=== PATIENT | female | born 1955 | race Caucasian/White ===

== ENCOUNTER 2017-08-08 13:02 | Inpatient (IN) | payer OTHER ==
[~2017-08-08] VITALS: Ht 154.9 cm; Wt 67.3 kg
[2017-08-08] VITALS (9 sets, daily range): BP systolic 78–141; BP diastolic 46–66; PULSE 68–96; RESP 18–19; Ht 154.9 cm; Wt 67.3 kg
[2017-08-08] MEDS ORDERED: NACL 0.9% 3 ML SYG IV SCH (16:00)
[2017-08-08] MEDS ORDERED: HYDROCODONE/APAP (5/325) TAB PO PRN (16:00)
--- NOTE | 2017-08-08 16:03 | HP ---
Date/Time of Note Date/Time of Note DATE: 08/08/17 TIME: 15:55 Assessment/Plan VTE Prophylaxis VTE Prophylaxis Intervention: LMWH Lines/Catheters IV Catheter Type (from [facility]): Saline Lock Assessment/Plan Chief Complaint/Hosp Course 61 yo female with sepsis 2/2 pyelonephritis - Continue ceftriaxone for now, seems to be working well - IVF for hypotension, though she says her baseline BP is 100/50, always low she has been told. Lactate is normal and mentating well, making urine so I do not believe she is in shock - F/u urine cultures - Can likely be discharged tomorrow Problems: HPI/ROS Admit Date/Time Admit Date/Time Aug 08, 2017 at 14:27 Hx of Present Illness 61 yo female without PMH who was transferred from [place] ED for treatment of pyelonephritis Patient in [facility] until about a week ago when developed dysuria and urinary frequency. Her symptoms were mild and tolerable, did not seek medical care. Then last night and through this AM symptoms progressed to fever, chills and lethargy with CVA pain as well as nausea/vomiting. Went to ED where found to have pyelonephritis. Lactate 2.5 then 1.1 with fluids. Slightly tachy, mild fever, baseline BP (runs low). Renal US showing pyelo changes but nothing else. Received ceftriaxone and transferred here Seen now, says she feels much better. Tolerating PO. PMH/Family/Social Past Medical History Medical History: no pertinent history Past Surgical History Past Surgical Hx: no surgical history Family History Significant Family History: no pertinent family hx Social History Alcohol Use: none Smoking Status: Current some day smoker Drug Use: none Exam/Review of Systems Vital Signs Vitals Vital Signs Date Time Temp Pulse Resp B/P Pulse Ox O2 Delivery O2 Flow Rate FiO2 08/08/17 15:30 70 89/50 08/08/17 15:15 98.5 18 98 Room Air Exam Constitutional: alert, oriented, well developed Psych: nl mood/affect, no complaints Head: atraumatic, normocephalic Eyes: EOMI, PERRL, nl conjunctiva, nl lids, nl sclera ENMT: nl external ears & nose, nl lips & teeth, nl nasal mucosa & septum Neck: non-tender, supple Respiratory: clear to auscultation, normal air movement Cardiovascular: nl pulses, regular rate and rhythm Gastrointestinal: nl liver, spleen, non-tender, soft Musculoskeletal: nl extremities to inspection Extremities: normal pulses Neurological: POLICEMAN II-XII intact, nl mental status, nl speech, nl strength Skin: nl turgor, No rash or lesions Lymph: nl lymph nodes ISAAC JOHNSON MD Aug 08, 2017 16:03
[2017-08-08] MEDS ORDERED: SOD CHLORIDE 0.9% 1,000 ML IV ONE (16:30)
[2017-08-08 17:30] LABS: BASOPHILS % 0.2 % (0.0-2.0); HEMATOCRIT 34.1 % (37.0-47.0); HEMOGLOBIN 11.2 g/dl (12.0-16.0); LYMPHOCYTES # 1.2 10^3/ul (0.8-2.9); LYMPHOCYTES % 8.5 % (15.0-51.0); MEAN CORPUSCULAR HEMOGLOBIN 28.8 pg (29.0-33.0); MEAN CORPUSCULAR HGB CONC 32.8 g/dl (32.0-37.0); MEAN CORPUSCULAR VOLUME 87.7 fl (82.0-101.0); MEAN PLATELET VOLUME 10.8 fl (7.4-10.4); MONOCYTE # 1.1 10^3/ul (0.3-0.9); MONOCYTES % 7.9 % (0.0-11.0); NEUTROPHIL # 11.7 10^3/ul (1.6-7.5); NEUTROPHILS % 82.9 % (39.0-77.0); PLATELET COUNT 209 10^3/UL (140-415); RED BLOOD COUNT 3.89 10^6/ul (4.20-5.40); RED CELL DISTRIBUTION WIDTH 13.3 % (11.5-14.5); WHITE BLOOD COUNT 14.1 10^3/ul (4.8-10.8)
[2017-08-08 17:58] LABS: CALCIUM 8.1 mg/dl (8.4-10.2); CREATININE 0.75 mg/dl (0.44-1.00); POTASSIUM 3.5 mmol/L (3.5-5.1)
[2017-08-08] MEDS ORDERED: PIPER-TAZO 3.375 GM IV (PMX) 50 ML ONE (19:27)
[2017-08-08] MEDS ORDERED: VANCOMYCIN 1 GM (PMX) 250 ML ONE (19:27)
[2017-08-08] MEDS ORDERED: ACETAMINOPHEN 325 MG TAB ONE (19:30)
--- NOTE | 2017-08-08 19:44 | EN ---
Date/Time of Note Date/Time of Note DATE: 08/08/17 TIME: 19:42 Event Note Medicine Medicine Event Note BRUISE TRIMMER called for rigors/fever Patient clearly rigoring, septic with 102 fever, tachy, tachypneic. 100% on 2L , BP 140/66, HR 100s Mentating normally Lungs clear A/P: 61 yo female with urosepsis: - Broaden to zosyn/vancomycin - BC and lactic acid drawn, will follow up ISAAC JOHNSON MD Aug 08, 2017 19:44
[2017-08-08] MEDS: ACETAMINOPHEN 325 MG TAB PO PRN (19:46)
[2017-08-08] MEDS ORDERED: PIPER-TAZO 3.375 GM IV (PMX) 50 ML IV ONE (20:00)
[2017-08-08] MEDS ORDERED: VANCOMYCIN 1 GM (PMX) 250 ML IVPB SCH (20:00)
[2017-08-08] MEDS: ONDANSETRON 4 MG INJ IV PRN (20:01)
[2017-08-08] MEDS ORDERED: SOD CHLORIDE 0.9% 500 ML IV ONE ×2 (20:30→23:00)
[2017-08-08 20:34] LABS: ADD UMIC YES; UR ASCORBIC ACID NEGATIVE (NEGATIVE); UR BACTERIA FEW /HPF (NONE SEEN); UR BILIRUBIN (Dip) NEGATIVE (NEGATIVE); UR BLOOD (Dip) 2+ mg/dL (NEGATIVE); UR CLARITY CLOUDY (CLEAR); UR COLOR YELLOW (YELLOW); UR GLUCOSE (Dip) NEGATIVE (NEGATIVE); UR KETONES (Dip) NEGATIVE (NEGATIVE); UR LEUKOCYTE ESTERASE (Dip) 3+ Leu/ul (NEGATIVE); UR MUCUS FEW /HPF (NONE SEEN); UR NITRITE (Dip) NEGATIVE (NEGATIVE); UR RBC 9 /HPF (0-5); UR SPECIFIC GRAVITY (Dip) 1.011 (1.003-1.030); UR TOTAL PROTEIN (Dip) 1+ mg/dl (NEGATIVE); UR UROBILINOGEN (Dip) NEGATIVE (NEGATIVE)
--- NOTE | 2017-08-08 20:50 | RADRPT ---
PROCEDURE: Chest x-ray CLINICAL INDICATION: Fever TECHNIQUE: Chest single view COMPARISON: None FINDINGS: The heart is normal in size. The pulmonary vessels are normal in caliber. The lungs are clear. Th e costophrenic angles are sharp. The visualized bony thorax is unremarkable. IMPRESSION: No acute cardiopulmonary disease. RPTAT: HH .Eloy Thomas MD, Date Time Electronically viewed and signed by .Eloy Thomas MD, MD on 08/08/2017 20:49 .W/
[2017-08-08] MEDS: SOD CHLORIDE 0.9% 1,000 ML IV SCH (23:57)
[2017-08-09] VITALS (12 sets, daily range): BP systolic 88–104; BP diastolic 45–55; PULSE 44–71; RESP 15–20
[2017-08-09] MEDS ORDERED: CEFTRIAXONE 1 GM/50 ML (PMX) 50 ML IVPB ONE (00:30)
[2017-08-09] MEDS ORDERED: SALINE 0.65% 45 ML NAS SPRAY NASAL PRN (05:30)
[2017-08-09] MEDS: PIPER-TAZO 3.375 GM IV (PMX) 50 ML IVPB SCH ×3 (05:32→16:52)
[2017-08-09] MEDS ORDERED: METHYLPREDNISOLONE 125 MG INJ IV ONE (07:00)
[2017-08-09] MEDS ORDERED: FAMOTIDINE 20 MG INJ IV ONE (07:00)
[2017-08-09 07:26] LABS: BASOPHIL # 0.1 10^3/ul (0.0-0.1); BASOPHILS % 0.3 % (0.0-2.0); EOSINOPHILS % 0.2 % (0.0-7.0); HEMATOCRIT 32.1 % (37.0-47.0); HEMOGLOBIN 10.2 g/dl (12.0-16.0); LYMPHOCYTES # 1.7 10^3/ul (0.8-2.9); LYMPHOCYTES % 9.9 % (15.0-51.0); MEAN CORPUSCULAR HEMOGLOBIN 28.7 pg (29.0-33.0); MEAN CORPUSCULAR HGB CONC 31.8 g/dl (32.0-37.0); MEAN CORPUSCULAR VOLUME 90.2 fl (82.0-101.0); MEAN PLATELET VOLUME 11.1 fl (7.4-10.4); MONOCYTE # 0.7 10^3/ul (0.3-0.9); MONOCYTES % 4.4 % (0.0-11.0); NEUTROPHIL # 14.1 10^3/ul (1.6-7.5); NEUTROPHILS % 84.8 % (39.0-77.0); PLATELET COUNT 186 10^3/UL (140-415); POSITIVE DIFF @See below; RED BLOOD COUNT 3.56 10^6/ul (4.20-5.40); RED CELL DISTRIBUTION WIDTH 13.4 % (11.5-14.5); WHITE BLOOD COUNT 16.7 10^3/ul (4.8-10.8)
[2017-08-09 07:53] LABS: ALBUMIN 2.7 g/dl (3.3-4.9); ALBUMIN/GLOBULIN RATIO 0.96; BILIRUBIN,INDIRECT 0.1 mg/dl (0-1.1); BILIRUBIN,TOTAL 0.1 mg/dl (0.2-1.3); CALCIUM 7.8 mg/dl (8.4-10.2); CREATININE 0.72 mg/dl (0.44-1.00); POTASSIUM 3.7 mmol/L (3.5-5.1); TOTAL PROTEIN 5.5 g/dl (6.1-8.1)
[2017-08-09] MEDS ORDERED: CEFTRIAXONE 2 GM/50 ML (PMX) 50 ML IVPB SCH (09:00)
[2017-08-09 09:02] LABS: BASOPHILS % (M) 2 % (0-2); ERYTHROBLAST% (NRBC) (M) 1 % (0-0); MONOCYTES % (M) 2 % (0-11); PLATELET ESTIMATE NORMAL
[2017-08-09] MEDS: SOD CHLORIDE 0.9% 1,000 ML IV SCH (09:28)
[2017-08-09] MEDS ORDERED: KETOROLAC 15 MG INJ IV STA (09:47)
[2017-08-09] MEDS ORDERED: KETOROLAC 30 MG INJ IV ONE (10:00)
--- NOTE | 2017-08-09 10:58 | RADRPT ---
PROCEDURE: CT ABDOMEN AND PELVIS WITHOUT CONTRAST. CLINICAL INDICATION: Urosepsis. Rule out abscess TECHNIQUE: CT scan of the abdomen and pelvis without contrast was performed on a multidetector hig h-resolution CT scanner. The patient was scanned without intravenous contrast. Coronal and sagittal reformatted images were obtained from the axial source images. Images were reviewed on a high-resol Lomography PACS workstation. The total exam CTDI equals 9.8 mGy and the total exam DLP equals 584.2 mGy-c m. One or more of the following dose reduction techniques were used: Automated exposure control. Adjustment of the mA and/or kV according to patient size. Use of iterative reconstruction technique. DICOM images are available COMPARISON: None FINDINGS: CT abdomen: Bilateral lower lobe atelectasis is identified. Heart size is within normal limits. There is no sign ificant pericardial effusion. Hepatic morphology is within normal limits. No gross contour deforming masses. Gallbladder is unrema rkable. No evidence of intrahepatic or extrahepatic biliary dilatation. The spleen and pancreas are within normal limits. Both adrenal glands are within normal limits. Both kidneys are and normal anatomic position. There is nonspecific bilateral perinephric fat strand ing. No gross renal/ureteric calculi. No evidence of hydronephrosis. The visualized GI tract demonstrates normal caliber loops of small and large bowel. No evidence of b owel obstruction. The appendix is within normal limits. Atherosclerotic calcification of the aorta is identified. Several shoddy retroperitoneal lymph nodes are noted. CT pelvis: The bladder is distended. The rectosigmoid colon is unremarkable. The uterus is not visualized. Smal l amount of free fluid within the pelvis. The visualized osseous structures, appears to be within normal limits. IMPRESSION: 1. No evidence of bowel obstruction. The appendix is within normal limits. 2. Nonspecific bilateral perinephric fat stranding. No gross renal/ureteric calculi or hydronephrosi s. Cannot exclude underlying infection. 3. No gross focal fluid collections. 4. The bladder appear to be within normal limits. Small amount nonspecific free fluid within the pel vis. 5. Atherosclerosis of the aorta. 6. Bilateral lower lobe atelectasis and small pleural effusions. RPTAT: AAPP Ronda Keller, Physician Date Time Electronically viewed and signed by Ronda Keller Physician on 08/09/2017 10:58 JL/
[2017-08-09] MEDS: KETOROLAC 30 MG INJ IV PRN (18:46)
[2017-08-09] MEDS ORDERED: INFLUENZA VIRUS VACCINE 0.5 ML SYG IM* ONE (21:00)
[2017-08-09] MEDS: DOCUSATE SODIUM 100 MG CAP PO SCH (21:20)
[2017-08-09] MEDS: POLYETHYLENE GLYCOL 17 GM PACKET PO SCH (21:20)
[2017-08-10] VITALS (13 sets, daily range): BP systolic 93–136; BP diastolic 48–65; PULSE 36–53; RESP 15–19
[2017-08-10] MEDS: PIPER-TAZO 3.375 GM IV (PMX) 50 ML IVPB SCH ×3 (01:57→17:13)
[2017-08-10] MEDS: ONDANSETRON 4 MG INJ IV PRN ×3 (07:58→21:44)
[2017-08-10] MEDS ORDERED: INFLUENZA VIRUS VACCINE 0.5 ML (DISPENSING) IM* ONE (09:00)
--- NOTE | 2017-08-10 09:26 | PN ---
Date/Time of Note Date/Time of Note DATE: 08/09/17 TIME: 09:24 Assessment/Plan VTE Prophylaxis VTE Prophylaxis Intervention: LMWH Lines/Catheters IV Catheter Type (from Nrs): Peripheral IV Urinary Cath still in place: No Assessment/Plan Chief Complaint/Hosp Course 61 yo female with sepsis 2/2 pyelonephritis Pyelonephritis with sepsis: - Abx broadened to zosyn - Culture data from outside hospital pending - IVF for hypotension, though she says her baseline BP is 100/50, always low she has been told. Lactate is normal and mentating well, making urine so I do not believe she is in shock - F/u cultures Problems: Subjective 24 Hr Interval Summary Free Text/Dictation Patient rigoring, febrile. Abx broadened to zosyn/vanco HD stable CT without surgical findings Exam/Review of Systems Vital Signs Vitals Vital Signs Date Time Temp Pulse Resp B/P Pulse Ox O2 Delivery O2 Flow Rate FiO2 08/10/17 08:11 53 08/10/17 07:30 98.1 19 127/58 98 08/10/17 06:02 3.0 08/10/17 04:00 Nasal Cannula Intake and Output 08/09/17 08/09/17 08/10/17 14:59 22:59 06:59 Intake Total 1050 ml 600 ml Balance 1050 ml 600 ml Exam Constitutional: alert, oriented, well developed Psych: nl mood/affect, no complaints Head: atraumatic, normocephalic Eyes: EOMI, PERRL, nl conjunctiva, nl lids, nl sclera ENMT: nl external ears & nose, nl lips & teeth, nl nasal mucosa & septum Neck: non-tender, supple Respiratory: clear to auscultation, normal air movement Cardiovascular: nl pulses, regular rate and rhythm Gastrointestinal: nl liver, spleen, non-tender, soft Musculoskeletal: nl extremities to inspection, nl gait and stance Extremities: normal pulses Neurological: HAND STAPLER II-XII intact, nl mental status, nl speech, nl strength Skin: nl turgor, No rash or lesions Lymph: nl lymph nodes Results Result Diagram: 08/09/17 0657 08/09/17 0657 Medications Medications Current Medications Acetaminophen/ Hydrocodone Bitart 1 tab 1 tab Q6H PRN PO MODERATE PAIN LEVEL 4- 6 Last administered on 08/08/17t 18:52; Admin Dose 1 TAB; Start 08/08/17 at 16 :00 Piperacillin Sod/ Tazobactam Sod (Zosyn 3.375gm/ 50 ml (Pmx)) 50 ml @ 12.5 mls/ hr TID@02,,18 IVPB Last administered on 08/10/17 07:58; Admin Dose 12.5 MLS /HR; Start 08/09/17 at 02:00 Acetaminophen (Tylenol Tab) 650 mg Q4H PRN PO PAIN AND OR ELEVATED TEMP Last administered on 08/08/17 19:46; Admin Dose 650 MG; Start 08/08/17 at 20:00 Ondansetron HCl (Zofran Inj) 4 mg Q4H PRN IV NAUSEA AND/OR VOMITING Last administered on 08/10/17 07:58; Admin Dose 4 MG; Start 08/08/17 at 20:00 Sodium Chloride (Deep Sea) 2 spray TID PRN NASAL NASAL CONGESTION; Start 08/09 at 05:30 Ketorolac Tromethamine (Toradol) 15 mg Q6H PRN IV PAIN Last administered on 18:46; Admin Dose 15 MG; Start 08/09/17 at 13:30; Stop 08/12/17 at 13: 29 Docusate Sodium (Colace) 200 mg HS PO Last administered on 08/09/17 21:20; Admin Dose 200 MG; Start 08/09/17 at 21:00 Polyethylene Glycol (Miralax) 17 gm HS PO Last administered on 08/09/17 21:20 ; Admin Dose 17 GM; Start 08/09/17 at 21:00 ISAAC JOHNSON MD Aug 10, 2017 09:26
[2017-08-10] MEDS: KETOROLAC 30 MG INJ IV PRN ×2 (11:07→20:29)
[2017-08-10 12:02] LABS: BASOPHILS % 0.1 % (0.0-2.0); EOSINOPHILS % 0.1 % (0.0-7.0); HEMATOCRIT 31.5 % (37.0-47.0); HEMOGLOBIN 10.3 g/dl (12.0-16.0); LYMPHOCYTES # 1.4 10^3/ul (0.8-2.9); LYMPHOCYTES % 9.3 % (15.0-51.0); MEAN CORPUSCULAR HGB CONC 32.7 g/dl (32.0-37.0); MEAN CORPUSCULAR VOLUME 88.7 fl (82.0-101.0); MEAN PLATELET VOLUME 11.7 fl (7.4-10.4); MONOCYTE # 0.6 10^3/ul (0.3-0.9); NEUTROPHILS % 85.9 % (39.0-77.0); PLATELET COUNT 215 10^3/UL (140-415); RED BLOOD COUNT 3.55 10^6/ul (4.20-5.40); RED CELL DISTRIBUTION WIDTH 13.3 % (11.5-14.5); WHITE BLOOD COUNT 15.1 10^3/ul (4.8-10.8)
[2017-08-10 12:27] LABS: CALCIUM 8.8 mg/dl (8.4-10.2); CREATININE 0.78 mg/dl (0.44-1.00); POTASSIUM 3.8 mmol/L (3.5-5.1)
--- NOTE | 2017-08-10 16:04 | PN ---
Date/Time of Note Date/Time of Note DATE: 08/10/17 TIME: 16:01 Assessment/Plan VTE Prophylaxis VTE Prophylaxis Intervention: LMWH Lines/Catheters IV Catheter Type (from Nrsg): Peripheral IV Urinary Cath still in place: No Assessment/Plan Chief Complaint/Hosp Course 61 yo female with sepsis 2/2 pyelonephritis Pyelonephritis with sepsis: - Continue zosyn, while inpatient and complete course of levaquin at discharge - Culture from outside hospital shows sensitive E Coli in urine Chest tightness - Trop/EKG to exclude [facility] - Chest XR - Likely from mild pulm edema from fluids given - Had negative stress test and normal echo at [facility] [facility] last year she says Bradycardia: - Check TSH Problems: Subjective 24 Hr Interval Summary Free Text/Dictation Complaints of chest "tightness" and SOB Sepsis symptoms resolved Spoke to micro lab at [place]. BC are negative. UC with > 100K E Coli, senstitive except to ampicillin Exam/Review of Systems Vital Signs Vitals Vital Signs Date Time Temp Pulse Resp B/P Pulse Ox O2 Delivery O2 Flow Rate FiO2 08/10/17 15:46 98.1 49 19 118/59 97 08/10/17 13:57 3.0 08/10/17 04:00 Nasal Cannula Intake and Output 08/09/17 08/09/17 08/10/17 15:00 23:00 07:00 Intake Total 1050 ml 600 ml Balance 1050 ml 600 ml Exam Constitutional: alert, oriented, well developed Psych: nl mood/affect, no complaints Head: atraumatic, normocephalic Eyes: EOMI, PERRL, nl conjunctiva, nl lids, nl sclera ENMT: nl external ears & nose, nl lips & teeth, nl nasal mucosa & septum Neck: non-tender, supple Respiratory: clear to auscultation, normal air movement Cardiovascular: nl pulses, regular rate and rhythm Gastrointestinal: nl liver, spleen, non-tender, soft Musculoskeletal: nl extremities to inspection, nl gait and stance Extremities: normal pulses Neurological: MANAGER CREATIVE SERVICES II-XII intact, nl mental status, nl speech, nl strength Skin: nl turgor, No rash or lesions Lymph: nl lymph nodes Results Result Diagram: 08/10/17 1059 08/10/17 1059 Results 24 hrs Laboratory Tests Test 08/10/17 10:59 White Blood Count 15.1 H Red Blood Count 3.55 L Hemoglobin 10.3 L Hematocrit 31.5 L Mean Corpuscular Volume 88.7 Mean Corpuscular Hemoglobin 29.0 Mean Corpuscular Hemoglobin Concent 32.7 Red Cell Distribution Width 13.3 Platelet Count 215 Mean Platelet Volume 11.7 H Neutrophils % 85.9 H Lymphocytes % 9.3 L Monocytes % 4.0 Eosinophils % 0.1 Basophils % 0.1 Nucleated Red Blood Cells % 0.0 Neutrophils # 13.0 H Lymphocytes # 1.4 Monocytes # 0.6 Eosinophils # 0.0 Basophils # 0.0 Nucleated Red Blood Cells # 0.0 Sodium Level 145 H Potassium Level 3.8 Chloride Level 112 H Carbon Dioxide Level 26 Anion Gap 11 Blood Urea Nitrogen 18 # Creatinine 0.78 Glucose Level 131 Calcium Level 8.8 Medications Medications Current Medications Acetaminophen/ Hydrocodone Bitart 1 tab 1 tab Q6H PRN PO MODERATE PAIN LEVEL 4- 6 Last administered on 08/08/17 18:52; Admin Dose 1 TAB; Start 08/08/17 at 16 :00 Piperacillin Sod/ Tazobactam Sod (Zosyn 3.375gm/ 50 ml (Pmx)) 50 ml @ 12.5 mls/ hr TID@02,10,18 IVPB Last administered on 08/10/17 07:58; Admin Dose 12.5 MLS /HR; Start 08/09/17 at 02:00 Acetaminophen (Tylenol Tab) 650 mg Q4H PRN PO PAIN AND OR ELEVATED TEMP Last administered on 08/08/17 19:46; Admin Dose 650 MG; Start 08/08/17 at 20:00 Ondansetron HCl (Zofran Inj) 4 mg Q4H PRN IV NAUSEA AND/OR VOMITING Last administered on 08/10/17 07:58; Admin Dose 4 MG; Start 08/08/17 at 20:00 Sodium Chloride (Deep Sea) 2 spray TID PRN NASAL NASAL CONGESTION; Start 08/09 at 05:30 Ketorolac Tromethamine (Toradol) 15 mg Q6H PRN IV PAIN Last administered on 11:07; Admin Dose 15 MG; Start 08/09/17 at 13:30; Stop 08/12/17 at 13: 29 Docusate Sodium (Colace) 200 mg HS PO Last administered on 08/09/17 21:20; Admin Dose 200 MG; Start 08/09/17 at 21:00 Polyethylene Glycol (Miralax) 17 gm HS PO Last administered on 08/09/17 21:20 ; Admin Dose 17 GM; Start 08/09/17 at 21:00 ISAAC JOHNSON MD Aug 10, 2017 16:04
[2017-08-10 20:21] LABS: TROPONIN-I < 0.012 ng/ml (0.00-0.12)
[2017-08-10] MEDS: POLYETHYLENE GLYCOL 17 GM PACKET PO SCH (20:28)
[2017-08-10] MEDS: DOCUSATE SODIUM 100 MG CAP PO SCH (20:28)
--- NOTE | 2017-08-10 20:33 | RADRPT ---
PROCEDURE: XR portable chest CLINICAL INDICATION: Congestive heart failure TECHNIQUE: Portable semi upright chest radiograph COMPARISON: Portable semiupright chest radiograph 08/08/2017 FINDINGS: Given the lordotic position of this radiograph, probably no significant change in size of the cardia c silhouette. The lung parenchyma is unchanged in appearance. No other significant interval changes seen. IMPRESSION: 1. Stable radiographic appearance of the chest RPTAT: TT Gianna Reinoso, Physician Date Time Electronically viewed and signed by Gianna Reinoso, Physician on 08/10/2017 20:33 JS/
[2017-08-11] VITALS (12 sets, daily range): BP systolic 115–133; BP diastolic 53–67; PULSE 44–57; RESP 17–20
[2017-08-11] MEDS: PIPER-TAZO 3.375 GM IV (PMX) 50 ML IVPB SCH ×2 (01:48→10:27)
[2017-08-11] MEDS: KETOROLAC 30 MG INJ IV PRN ×2 (05:32→15:33)
[2017-08-11 08:13] LABS: BASOPHILS % 0.3 % (0.0-2.0); EOSINOPHILS # 0.1 10^3/ul (0.0-0.5); EOSINOPHILS % 0.7 % (0.0-7.0); HEMATOCRIT 32.8 % (37.0-47.0); HEMOGLOBIN 10.5 g/dl (12.0-16.0); LYMPHOCYTES # 1.6 10^3/ul (0.8-2.9); LYMPHOCYTES % 15.9 % (15.0-51.0); MEAN CORPUSCULAR HEMOGLOBIN 28.6 pg (29.0-33.0); MEAN CORPUSCULAR VOLUME 89.4 fl (82.0-101.0); MEAN PLATELET VOLUME 11.2 fl (7.4-10.4); MONOCYTE # 0.7 10^3/ul (0.3-0.9); MONOCYTES % 6.9 % (0.0-11.0); NEUTROPHIL # 7.8 10^3/ul (1.6-7.5); NEUTROPHILS % 75.4 % (39.0-77.0); PLATELET COUNT 231 10^3/UL (140-415); RED BLOOD COUNT 3.67 10^6/ul (4.20-5.40); RED CELL DISTRIBUTION WIDTH 13.5 % (11.5-14.5); WHITE BLOOD COUNT 10.3 10^3/ul (4.8-10.8)
[2017-08-11 08:38] LABS: CALCIUM 8.5 mg/dl (8.4-10.2); CREATININE 0.83 mg/dl (0.44-1.00); POTASSIUM 4.1 mmol/L (3.5-5.1)
--- NOTE | 2017-08-11 15:24 | PN ---
Date/Time of Note Date/Time of Note DATE: 08/11/17 TIME: 15:22 Assessment/Plan VTE Prophylaxis VTE Prophylaxis Intervention: LMWH Lines/Catheters [facility]from [facility] Saline Lock Urinary Cath still in place: No Assessment/Plan Chief Complaint/Hosp Course 61 yo female with sepsis 2/2 pyelonephritis Pyelonephritis with sepsis: - Will convert to PO levaquin to complete a course of abx. It is possible her nausea is from zosyn so we can see if improves off of this. Will also stop laxatives which may be contributing Bradycardia: - Stable, TSH wnl. Asymptomatic Discharge to home tomorrow to complete course of abx if she is feeling well Problems: Subjective 24 Hr Interval Summary Free Text/Dictation Feeling nauseous today, not able to take PO very easily Not ready to leave Shortness of breath/chest tightness resolved completely Exam/Review of Systems Vital Signs Vitals Vital Signs Date Time Temp Pulse Resp B/P Pulse Ox O2 Delivery O2 Flow Rate FiO2 08/11/17 13:50 3.0 08/11/17 12:04 98.1 48 18 115/53 99 08/11/17 08:30 Nasal Cannula Intake and Output 08/10/17 08/10/17 08/11/17 15:00 23:00 07:00 Intake Total 800 ml 500 ml Balance 800 ml 500 ml Exam Constitutional: alert, oriented, well developed Psych: nl mood/affect, no complaints Head: atraumatic, normocephalic Eyes: EOMI, PERRL, nl conjunctiva, nl lids, nl sclera ENMT: nl external ears & nose, nl lips & teeth, nl nasal mucosa & septum Neck: non-tender, supple Respiratory: clear to auscultation, normal air movement Cardiovascular: nl pulses, regular rate and rhythm Gastrointestinal: nl liver, spleen, non-tender, soft Musculoskeletal: nl extremities to inspection, nl gait and stance Extremities: normal pulses Neurological: PRODUCT MARKETING CONSULTANT II-XII intact, nl mental status, nl speech, nl strength Skin: nl turgor, No rash or lesions Lymph: nl lymph nodes Results Result Diagram: 08/11/17 0722 08/11/17 0722 Results 24 hrs Laboratory Tests Test 08/10/17 17:59 08/11/17 07:22 Troponin I < 0.012 Thyroid Stimulating Hormone (TSH) 2.210 White Blood Count 10.3 # Red Blood Count 3.67 L Hemoglobin 10.5 L Hematocrit 32.8 L Mean Corpuscular Volume 89.4 Mean Corpuscular Hemoglobin 28.6 L Mean Corpuscular Hemoglobin Concent 32.0 Red Cell Distribution Width 13.5 Platelet Count 231 Mean Platelet Volume 11.2 H Neutrophils % 75.4 Lymphocytes % 15.9 Monocytes % 6.9 Eosinophils % 0.7 Basophils % 0.3 Nucleated Red Blood Cells % 0.0 Neutrophils # 7.8 H Lymphocytes # 1.6 Monocytes # 0.7 Eosinophils # 0.1 Basophils # 0.0 Nucleated Red Blood Cells # 0.0 Sodium Level 145 H Potassium Level 4.1 Chloride Level 112 H Carbon Dioxide Level 28 Anion Gap 9 Blood Urea Nitrogen 18 Creatinine 0.83 Glucose Level 90 # Calcium Level 8.5 Medications Medications Current Medications Acetaminophen/ Hydrocodone Bitart (Eads (5/325)) 1 tab Q6H PRN PO MODERATE PAIN LEVEL 4-6 Last administered on 08/08/17 18:52; Admin Dose 1 TAB; Start 08/08/17 at 16:00 Acetaminophen (Tylenol Tab) 650 mg Q4H PRN PO PAIN AND OR ELEVATED TEMP Last administered on 08/08/17 19:46; Admin Dose 650 MG; Start 08/08/17 at 20:00 Ondansetron HCl (Zofran Inj) 4 mg Q4H PRN IV NAUSEA AND/OR VOMITING Last administered on 08/10/17 21:44; Admin Dose 4 MG; Start 08/08/17 at 20:00 Sodium Chloride (Deep Sea) 2 spray TID PRN NASAL NASAL CONGESTION; Start 08/09 at 05:30 Ketorolac Tromethamine (Toradol) 15 mg Q6H PRN IV PAIN Last administered on 05:32; Admin Dose 15 MG; Start 08/09/17 at 13:30; Stop 08/12/17 at 13: 29 Docusate Sodium (Colace) 200 mg HS PO Last administered on 08/10/17 20:28; Admin Dose 200 MG; Start 08/09/17 at 21:00 Polyethylene Glycol (Miralax) 17 gm HS PO Last administered on 08/10/17 20:28 ; Admin Dose 17 GM; Start 11/17/17 at 21:00 ISAAC JOHNSON MD Aug 11, 2017 15:24
[2017-08-11] MEDS: LEVOFLOXACIN 750 MG TABLET GTB SCH (20:45)
[2017-08-11] MEDS: ONDANSETRON 4 MG INJ IV PRN (20:46)
[2017-08-12] VITALS (8 sets, daily range): BP systolic 128–142; BP diastolic 62–65; PULSE 38–126; RESP 16–18
[2017-08-12] MEDS: ACETAMINOPHEN 325 MG TAB PO PRN ×2 (00:30→08:35)
[2017-08-12] MEDS: LEVOFLOXACIN 750 MG TABLET GTB SCH (05:14)
--- NOTE | 2017-08-12 12:48 | PDOCDIS ---
Discharge Instructions DIAGNOSIS Discharge Diagnosis Pyelonephritis/sepsis CONDITION Patient Condition: Good HOME CARE INSTRUCTIONS: Special Diet: regular ACTIVITY: Activity Restrictions: Slowly Increase Activity FOLLOW UP/APPOINTMENTS Follow-up Plan Appointment primary 1 week SHERIF CHRIS MD Aug 12, 2017 12:48
[2017-08-12] MEDS ORDERED: ACET325T40 PO (12:50)
[2017-08-12] MEDS ORDERED: LEVO750T25 GTB (12:50)
--- NOTE | 2017-08-12 12:52 | DS ---
Date/Time of Note Date/Time of Note DATE: 08/12/17 TIME: 12:50 Discharge Summary Admission/Discharge Info Admit Date/Time Aug 08, 2017 at 14:27 Discharge Date/Time Discharge Diagnosis Pyelonephritis/sepsis Patient Condition: Good Procedures Laboratory Hx of Present Illness 61 yo female without PMH who was transferred from [place] ED for treatment of pyelonephritis Patient in [facility] until about a week ago when developed dysuria and urinary frequency. Her symptoms were mild and tolerable, did not seek medical care. Then last night and through this AM symptoms progressed to fever, chills and lethargy with CVA pain as well as nausea/vomiting. Went to ED where found to have pyelonephritis. Lactate 2.5 then 1.1 with fluids. Slightly tachy, mild fever, baseline BP (runs low). Renal US showing pyelo changes but nothing else. Received ceftriaxone and transferred here Seen now, says she feels much better. Tolerating PO. Hospital Course 61 yo female with sepsis 2/2 pyelonephritis Pyelonephritis with sepsis: Presently stable and fit for discharge. Will go home on Levaquin. Asked to stay hydrated. Discharge to home to complete course of Levaquin.l Bradycardia: - Stable, TSH wnl. Asymptomatic Tobacco abuse; s/p counseling. Off her patch Anemia. No active bleed. Recommend continued monitoring as outpatient. History of colonoscopy which was probably normal. Home Meds Active Scripts Levofloxacin* (Levaquin*) 750 Mg Tablet, 750 MG GTB DAILY@06 for 7 Days, #8 TAB Prov:SHERIF CHRIS MD 08/12/17 Acetaminophen (MAPAP) 325 Mg Tablet, 650 MG PO Q4H Y for PAIN AND OR ELEVATED TEMP for 7 Days, #8 TAB Prov:SHERIF CHRIS MD 08/12/17 Follow-up Plan Appointment primary 1 week Primary Care Provider Not On Staff Doctor Time spent on discharge: > 30 minutes SHERIF CHRIS MD Aug 12, 2017 12:52
[2017-08-12] MEDS ORDERED: NICO-491 TD (12:53)
[2017-08-13] MEDS ORDERED: ENOXAPARIN 40 MG/0.4 ML SYG SC SCH (09:00)
--- NOTE | 2017-08-13 14:33 | RADRPT ---
Vent Rate: 45 bpm RR Interval: 0 msec RI Interval: 134 msec QRS Duration: 76 msec QT Interval: 470 msec QTC Interval: 406 msec P-R-T [place]: 50 - 36 - 44 degrees Marked sinus bradycardia Low voltage QRS Cannot rule out Anterior infarct , age undetermined Abnormal ECG Electronically Signed By: Maximino Swift [id number]
== END 2017-08-12 16:03 | disposition home or self-care (01) | DRG 872 ==
LOC: PP2 14:27 → MS4 08-09 00:12
PROVIDERS: ADMIT Internal Medicine; ATTEND Internal Medicine
DX: A41.9 Sepsis, unspecified organism (principal); R00.1 Bradycardia, unspecified; N12 Tubulo-interstitial nephritis, not specified as acute or chronic; R07.89 Other chest pain
CPT/HCPCS: 71010; 74176; 80048; 80053; 81001; 83605; 84443; 84484; 85025; 87040; 87086; 90686; 93005; J0696; J1885; J2405; J2543; J2930; J3370; J7030; J7040

== ENCOUNTER 2018-03-03 12:38 | Inpatient (IN) | END 2018-03-08 12:04 | disposition home or self-care (01) | DRG 554 ==